=== PATIENT | female | born 1955 | race Caucasian/White ===

== ENCOUNTER 2016-03-08 20:00 | Emergency (ER) | payer OTHER ==
[~2016-03-08] VITALS: Ht 160 cm; Wt 54.6 kg
[~2016-03-08 20:00] MED LIST: AMBIEN10 MG PO; AMBIEN5 MG PO; BACTRIM,SEPT1 TABLET PO; BENADRYL ALLERG25 MG PO; FLAGYL500 MG PO; HYDROCODON-ACE1 EAC7 PO; MELOXICAM15 MG PO; NORCO 5/3251 TABLET PO; ROCEPHIN2 GM/50 ML IV; ZOFRAN ODT4 MG PO
[2016-03-08 20:26] LABS: HEMATOCRIT 41.8 % (36.0-46.0); MCH 33.5 PG (29.0-34.0); MCHC 35.2 G/DL (30.0-36.0); MCV 95.2 FL (83-99); MEAN PLAT.VOLUME 9.8 uM^3 (9.5-12.4); PLATELET COUNT 244 K/uL (156-360); RBC DIS.WIDTH-CV 12.6 % (11.8-14.6); RBC DIS.WIDTH-SD 42.6 % (39-53); RED BLOOD COUNT 4.39 M/uL (3.80-5.20); WHITE BLOOD COUNT 11.3 K/uL (4.1-10.2)
[2016-03-08 20:41] LABS: CHLORIDE 105 mEq/L (99-109); POTASSIUM 3.3 mEq/L (3.7-5.4); SODIUM 140 mEq/L (136-147)
[2016-03-08 20:42] LABS: GLUCOSE 109 mg/dL (70-99)
[2016-03-08 20:44] LABS: ANION GAP 17 MEQ/L (2-14)
[2016-03-08] MEDS ORDERED: ADVIL,NUPRIN,M200 MG PO (20:45)
[2016-03-08] MEDS ORDERED: CARDIZEM30 MG PO (20:45)
[2016-03-08 20:46] LABS: GFR ESTIMATE (CALCULATED) > 59 mL/min/
[2016-03-08 20:47] LABS: UREA NITROGEN (BUN) 16 mg/dL (9-23)
[2016-03-08 20:53] LABS: TROP-I INTERPRETATION NEGATIVE; TROPONIN-I 0.03 ng/mL (0.0-0.30)
[2016-03-08 22:10] VITALS: BP 105/70
== END 2016-03-08 22:30 | disposition home or self-care (01) ==
LOC: EME 20:00
PROVIDERS: Emergency Medicine
DX: I47.1 Supraventricular tachycardia (principal); M79.7 Fibromyalgia; G89.29 Other chronic pain
CPT/HCPCS: 71010; 80048; 84484; 85027; 93005; 99281; 99285; J0153; J7030

== ENCOUNTER 2016-11-02 21:06 | Inpatient (IN) | payer OTHER ==
[~2016-11-02] VITALS: Ht 160 cm; Wt 67.4 kg
[~2016-11-02 21:06] MED LIST changes: +ADVIL,NUPRIN,M200 MG PO; +CARDIZEM30 MG PO; +ERGOCALCIF50000 UNIT PO; +TOPROL XL25 MG PO; +VITAMIN D35000 UNIT PO
[2016-11-03 11:45] VITALS: BP 146/80
[2016-11-03 17:04] VITALS: BP 172/82
[2016-11-03 17:58] LABS: HEMATOCRIT 43.3 % (36.0-46.0); MCH 34.2 PG (29.0-34.0); MCHC 34.6 G/DL (30.0-36.0); MCV 98.6 FL (83-99); MEAN PLAT.VOLUME 10.3 uM^3 (9.5-12.4); PLATELET COUNT 201 K/uL (156-360); RBC DIS.WIDTH-CV 12.5 % (11.8-14.6); RBC DIS.WIDTH-SD 45.6 % (39-53); RED BLOOD COUNT 4.39 M/uL (3.80-5.20)
[2016-11-03 18:20] LABS: ANION GAP 10 MEQ/L (2-14); CHLORIDE 104 MEQ/L (99-109); GFR ESTIMATE (CALCULATED) > 59 mL/min/; GLUCOSE 126 mg/dL (70-99); POTASSIUM 3.8 MEQ/L (3.7-5.4); SAMPLE HEMOLYSIS CHECK 0; SAMPLE ICTERIC CHECK 0; SAMPLE LIPEMIA CHECK 0; SODIUM 137 MEQ/L (136-147); UREA NITROGEN (BUN) 16 mg/dL (9-23)
[2016-11-03 18:35] VITALS: BP 161/83
[2016-11-03 21:57] VITALS: BP 142/84
[2016-11-03 23:46] VITALS: BP 142/90
[2016-11-04 04:49] VITALS: BP 122/78
[2016-11-04 07:00] LABS: ANION GAP 8 MEQ/L (2-14); CHLORIDE 100 MEQ/L (99-109); GFR ESTIMATE (CALCULATED) > 59 mL/min/; GLUCOSE 117 mg/dL (70-99); POTASSIUM 3.8 MEQ/L (3.7-5.4); SAMPLE HEMOLYSIS CHECK 0; SAMPLE ICTERIC CHECK 0; SAMPLE LIPEMIA CHECK 0; SODIUM 136 MEQ/L (136-147); UREA NITROGEN (BUN) 12 mg/dL (9-23)
[2016-11-04 07:18] LABS: HEMATOCRIT 46.3 % (36.0-46.0); MCH 32.4 PG (29.0-34.0); MCHC 32.6 G/DL (30.0-36.0); MCV 99.4 FL (83-99); MEAN PLAT.VOLUME 10.4 uM^3 (9.5-12.4); RBC DIS.WIDTH-CV 12.5 % (11.8-14.6); RBC DIS.WIDTH-SD 46.2 % (39-53); RED BLOOD COUNT 4.66 M/uL (3.80-5.20); WHITE BLOOD COUNT 10.4 K/uL (4.1-10.2)
[2016-11-04 07:19] LABS: PLATELET COUNT 267 K/uL (156-360)
[2016-11-04 08:02] VITALS: BP 133/66
[2016-11-04 12:36] VITALS: BP 120/60
[2016-11-04 16:46] VITALS: BP 120/62
[2016-11-04 23:12] VITALS: BP 130/62
[2016-11-05 03:32] VITALS: BP 128/64
[2016-11-05 06:55] LABS: HEMATOCRIT 39.3 % (36.0-46.0); MCH 32.5 PG (29.0-34.0); MCHC 32.8 G/DL (30.0-36.0); RBC DIS.WIDTH-CV 12.3 % (11.8-14.6); RBC DIS.WIDTH-SD 45.1 % (39-53); RED BLOOD COUNT 3.97 M/uL (3.80-5.20); WHITE BLOOD COUNT 7.9 K/uL (4.1-10.2)
[2016-11-05 06:57] LABS: ANION GAP 9 MEQ/L (2-14); CHLORIDE 107 MEQ/L (99-109); GFR ESTIMATE (CALCULATED) > 59 mL/min/; GLUCOSE 90 mg/dL (70-99); POTASSIUM 3.6 MEQ/L (3.7-5.4); SAMPLE HEMOLYSIS CHECK 0; SAMPLE ICTERIC CHECK 0; SAMPLE LIPEMIA CHECK 0; SODIUM 140 MEQ/L (136-147); UREA NITROGEN (BUN) 8 mg/dL (9-23)
[2016-11-05 07:28] VITALS: BP 149/71
[2016-11-05 08:00] LABS: MEAN PLAT.VOLUME 10.4 uM^3 (9.5-12.4); PLAT.SUFFICIENCY ADEQUATE; PLATELET COUNT 183 K/uL (156-360)
[2016-11-05] MEDS ORDERED: TRAMADOL HCL50 MG PO (09:06)
== END 2016-11-05 11:05 | disposition home or self-care (01) | DRG 742 ==
LOC: ENRESERV 21:06 → CANRESERV 21:06 → ENRESERV 21:12 → 2SOUTH 11-03 09:27 → ENRESERV 11-03 15:20 → 2EASTP 11-03 16:58
PROVIDERS: Obstetrics & Gynecology Gynecologic Oncology
DX: N83.209 Unspecified ovarian cyst, unspecified side (principal); I47.1 Supraventricular tachycardia; N13.5 Crossing vessel and stricture of ureter without hydronephrosis; K66.0 Peritoneal adhesions (postprocedural) (postinfection); G47.00 Insomnia, unspecified; E55.9 Vitamin D deficiency, unspecified; M15.9 Polyosteoarthritis, unspecified; Z96.649 Presence of unspecified artificial hip joint; Z90.710 Acquired absence of both cervix and uterus; Z88.0 Allergy status to penicillin; Z82.49 Family history of ischemic heart disease and other diseases of the circulatory system
CPT/HCPCS: 36415; 80048; 85027; 86850; 86900; 86901; 86920; 88304; 88305; C1758; J0131; J1170; J1200; J1580; J1885; J2250; J2405; J2765; J3010; J7050; S0030

== ENCOUNTER 2017-09-13 15:51 | Emergency (ER) | payer OTHER ==
[~2017-09-13] VITALS: Ht 160 cm; Wt 57.0 kg
[~2017-09-13 15:51] MED LIST changes: +TRAMADOL HCL50 MG PO
[2017-09-13 16:37] LABS: HEMATOCRIT 43.2 % (36.0-46.0); HEMOGLOBIN 15.6 G/DL (11.9-15.5); MCH 35.1 PG (29.0-34.0); MCHC 36.1 G/DL (30.0-36.0); MCV 97.1 FL (83-99); PLATELET COUNT 255 K/uL (156-360); RBC DIS.WIDTH-CV 12.6 % (11.8-14.6); RBC DIS.WIDTH-SD 44.7 % (39-53); RED BLOOD COUNT 4.45 M/uL (3.80-5.20); WHITE BLOOD COUNT 7.5 K/uL (4.1-10.2)
[2017-09-13 16:47] LABS: ALBUMIN 4.3 g/dL (3.2-4.8)
[2017-09-13 16:48] LABS: CHLORIDE 98 mEq/L (99-109); POTASSIUM 3.5 mEq/L (3.7-5.4); SODIUM 139 mEq/L (136-147)
[2017-09-13 16:50] LABS: GLUCOSE 95 mg/dL (70-99); TOTAL PROTEIN 7.1 g/dL (6.4-8.3)
[2017-09-13 16:52] LABS: TOTAL BILIRUBIN 1.2 mg/dL (0.0-1.0)
[2017-09-13 16:53] LABS: ALKALINE PHOSPHATASE 91 IU/L (3-129)
[2017-09-13 16:54] LABS: CREATININE 0.7 mg/dL (0.6-1.3); GFR ESTIMATE (CALCULATED) > 59 mL/min/
[2017-09-13 16:55] LABS: AST (GOT) 43 IU/L (2-34); UREA NITROGEN (BUN) 11 mg/dL (9-23)
[2017-09-13 16:56] LABS: ALT (GPT) 38 IU/L (3-49)
[2017-09-13 17:05] LABS: APPEARANCE CLEAR ((CLEAR)); BILIRUBIN NEGATIVE; BLOOD SMALL; COLOR STRAW ((YELLOW)); GLUCOSE (STRIP) NEGATIVE; KETONES 20; LEUKOCYTES NEGATIVE; NITRITE NEGATIVE; PROTEIN (STRIP) NEGATIVE; SPECIFIC GRAVITY 1.004 (1.000-1.030); UROBILINOGEN 0.2 MG/DL (0.2-1.0)
[2017-09-13 17:08] LABS: BACTERIA RARE /HPF; EPITHELIAL CELLS RARE /HPF; MUCUS NONE SEEN /LPF; RED BLOOD CELLS 0-5 /HPF (0-5); UCUL ADDED? NO; WHITE BLOOD CELLS NONE SEEN /HPF (0-5)
[2017-09-13 19:52] LABS: LIPASE 18 U/L (1.0-51.0)
[2017-09-13 21:39] LABS: THYROTROPIN (TSH) 1.8 MIU/L (0.4-5.5)
[2017-09-13] MEDS ORDERED: ZOFRAN ODT4 MG PO (22:20)
[2017-09-13 22:54] VITALS: BP 147/82
[2017-09-15] MEDS ORDERED: VITAMIN D10000 UNIT PO (13:42)
== END 2017-09-13 22:56 | disposition home or self-care (01) ==
LOC: EME 15:51
DX: R11.2 Nausea with vomiting, unspecified (principal); R19.7 Diarrhea, unspecified; E87.6 Hypokalemia; R10.32 Left lower quadrant pain; I10 Essential (primary) hypertension; M79.7 Fibromyalgia; Z88.0 Allergy status to penicillin
CPT/HCPCS: 74177; 80053; 81003; 83690; 84443; 85027; 99281; 99285; J2405; J3010